=== PATIENT | male | born 1965 | race Caucasian/White ===

== ENCOUNTER 2020-12-25 10:08 | Emergency (ER) | payer OTHER ==
[~2020-12-25] VITALS: Ht 167.6 cm; Wt 74.8 kg
[~2020-12-25 10:08] MED LIST: ESOM20CA PO; NO REPORTABLE MEDS
[2020-12-25 10:20] VITALS: BP 137/84
--- NOTE | 2020-12-25 11:03 | NUR ---
Patient discharged to home in stable condition. Written and verbal after care instructions given. Patient verbalizes understanding of instruction.
== END 2020-12-25 11:03 | disposition home or self-care (01) ==
LOC: ER 10:10
DX: U07.1 COVID-19 (principal); Z79.899 Other long term (current) drug therapy

== ENCOUNTER 2022-12-14 19:52 | Emergency (ER) | payer OTHER ==
[~2022-12-14] VITALS: Ht 172.7 cm; Wt 84.4 kg
[2022-12-14 21:42] VITALS: BP 119/78; TEMP 98.6; O2SAT 98
== END 2022-12-14 21:42 | disposition home or self-care (01) ==
LOC: ER 19:53
DX: U07.1 COVID-19 (principal); Z79.899 Other long term (current) drug therapy
CPT/HCPCS: 99283; 87426; 87804 ×2; C9803

== ENCOUNTER → 2023-07-24 | Emergency (ER) | payer OTHER ==
[~2023-07-24] VITALS: Ht 167.6 cm; Wt 68.0 kg
[~2023-07-24] MED LIST changes: +TDAP [DIPH/PERTUSSIS/TET] 0.5 ML VIAL IM ONE
[2023-07-24 19:34] VITALS: BP 135/79; TEMP 98.1; O2SAT 98
[2023-07-24] MEDS: TDAP [DIPH/PERTUSSIS/TET] 0.5 ML VIAL IM ONE (20:15)
== END | disposition home or self-care (01) ==
LOC: ER 19:15
DX: S91.332A Puncture wound without foreign body, left foot, initial encounter (principal); X58.XXXA Exposure to other specified factors, initial encounter; Y93.01 Activity, walking, marching and hiking; Y92.69 Other specified industrial and construction area as the place of occurrence of the external cause; Y99.8 Other external cause status
CPT/HCPCS: 90715